=== PATIENT | female | born 1975 | race African-American/Black ===

== ENCOUNTER 2017-01-22 05:31 | Day surgery (SDC) | payer BC, OTHER ==
[~2017-01-22] VITALS: Ht 165.1 cm; Wt 114.6 kg
--- NOTE | ~2017-01-22 | O ---
[facility] [address] [place] [address] OPERATIVE REPORT Name: CARTER MAHER Room #: 150-5 [facility]..#: [id number] Admission: 01/22/17 Attend Phys: Osei Otoole MD Discharge: Date of : 73 Report #: [id number] THIS REPORT FOR: //name// CC: Bryan Otoole DATE OF SERVICE: 01/22/[address] Osei Otoole and Dr. Bryan Gibson. PREOPERATIVE DIAGNOSIS: Right axillary hidradenitis suppurativa. POSTOPERATIVE DIAGNOSIS: Right axillary hidradenitis suppurativa. PROCEDURE: Excision of 6 cm x 2.5 cm hidradenitis suppurativa of the right axilla. SURGEON: Osei Otoole M.D. ANESTHESIA: Local IV sedation. DESCRIPTION OF PROCEDURE: The patient was brought to the operating room and placed on operative table in the supine position. Sequential compression devices were in place for DVT prophylaxis. There is no indication for preoperative antibiotics. The right arm was placed out in armboard and the right axilla was then prepped and draped in a sterile fashion after undergoing IV sedation. Skin and subcutaneous tissue was then infiltrated with 0.5% Marcaine and 1% Xylocaine in a 1:1 mixture. An elliptical skin incision was performed around this area using a #15 scalpel blade. Hemostasis obtained using electrocautery. Dissection was carried down through subcutaneous tissue and around this area using the electrocautery. This area was completely excised and sent to pathology. Meticulous hemostasis was checked and obtained using electrocautery. Deep and superficial subcutaneous tissue was then reapproximated using simple interrupted 2-0 chromic sutures and the skin then closed with interrupted vertical mattress 4-0 nylon sutures and the wound dressed with Telfa, 4 x 4 gauze, sponge and tape. The patient was then taken to the recovery room awake, alert and in good condition. Estimated blood loss was less than 5 mL, and the patient tolerated procedure well. All sponge, lap and instrument counts correct times 2. By: [id number] Osei Otoole MD /nt
--- NOTE | ~2017-01-22 | S ---
[facility] [address] [place] [address] SURGICAL PATH RPT PROCEDURE Name: CARTER MAHER Room #: [facility]P [facility]..#: [id number] Admission: 01/22/17 Date of : 73 Discharge: 01/22/17 Report #: [id number] Path Case #: [id number] PATHOLOGY REPORT COLLECTION DATE: 01/22/2017 RECEIVED DATE: 01/22/2017 SUBMITTING PHYS: Dr. Osei Otoole OTHER PHYS: Dr. Bryan Gibson SPECIMEN(S) RECEIVED: A.Right axillary hidradenitis * * * * * * * * * * * * FINAL DIAGNOSIS: Tissue designated as right axillary hidradenitis, excision: - Moderate chronic inflammation within dermis. - No residual hidradenitis present. - Overlying skin showing pigmented seborrheic keratosis. - Negative for dysplasia or malignancy. PATHOLOGIST: Jacey Rajan M.D. REPORT ELECTRONICALLY SIGNED BY: Jacey Rajan M.D. DATE/TIME: 01/24/2017 16:33 * * * * * * * * * * * * GROSS PATHOLOGY: The specimen is received in formalin, labeled "Carter Maher right axillary hidradenitis." Received is an ellipse of dark suazo-brown skin with attached yellow clark fibroadipose tissue measuring 5.1 x 1.3 x 1.4 cm in greatest dimensions. The epidermal surface displays a linear possible lesion measuring 1.5 x 0.2 x 0.1 cm. Sectioning reveals a yellow-clark lobulated cut surfaces throughout with no grossly distinct nodules or lesions. Specimen is submitted representatively in cassette A1-A2. (KAH; 01/23/2017) CLINICAL HISTORY: Right hidradenitis INITIAL CPT CODE(S): A; 08655 Professional services performed by [facility] at [facility] [address] [facility] , [place] [address] Technical services performed by [facility] at [address] [place] [address] [address] [place] [address] SURGICAL PATH RPT PROCEDURE Name: CARTER MAHER Room #: [facility]..#: [id number] Admission: 01/22/17 Date of : 73 Discharge: 01/22/17 Report #: [id number] Path Case #: [id number] [place] [address]. [facility] [address] [place] [address] PHONE: [phone] DIRECTOR: Jeramie Cristina M.D. * * * END OF REPORT * * *
[~2017-01-22 05:31] MED LIST: AMBIEN 5 MG TABL5 M1 PO; PREVACID30 MG PO
[2017-01-22 07:32] LABS: HEMATOCRIT 35.9 % (37.0-47.0); HEMOGLOBIN 11.7 gm/dL (12.0-15.0); MCH 24.4 pg (26.0-34.0); MCHC 32.5 g/dL (28.0-37.0); MCV 75.2 fL (80.0-100.0); RBC 4.78 mil/uL (4.20-5.00); WBC 6.4 thou/uL (4.0-11.0)
[2017-01-22 08:23] VITALS: BP 153/98
[2017-01-22] MEDS ORDERED: NORCO 5-325 TA1 EACH PO (09:55)
[2017-01-22 10:11] VITALS: BP 153/98
== END 2017-01-22 10:40 | disposition home or self-care (01) ==
LOC: OR 05:31 → TBA 05:32 → OR 10:40
PROVIDERS: Surgery
DX: L73.2 Hidradenitis suppurativa (principal); K21.9 Gastro-esophageal reflux disease without esophagitis; K44.9 Diaphragmatic hernia without obstruction or gangrene; Z90.49 Acquired absence of other specified parts of digestive tract; Z98.890 Other specified postprocedural states; J45.909 Unspecified asthma, uncomplicated; D64.9 Anemia, unspecified
CPT/HCPCS: 50010; 50101; 50386; 50417; 56524; 56526; 62110; 62850; 70005